=== PATIENT | female | born 1980 | race Caucasian/White ===

== ENCOUNTER 2021-12-30 07:18 | Emergency (ER) | payer OTHER ==
[2021-12-30 07:57] VITALS: BP 128/73; PULSE 98; TEMP 98.2
== END 2021-12-30 09:30 | disposition home or self-care (01) ==
LOC: JER 07:18 → JERFT 07:18
DX: Z20.2 Contact with and (suspected) exposure to infections with a predominantly sexual mode of transmission (principal)
CPT/HCPCS: 36415; 84703; 87491; 87591; 99283-25

== ENCOUNTER 2023-02-24 05:46 | Emergency (ER) | payer OTHER ==
[2023-02-24 05:55] VITALS: BP 138/90; PULSE 107; RESP 18; TEMP 98.2; BMI 24.1
== END 2023-02-24 08:00 | disposition left against medical advice (07) ==
LOC: JER 05:46
DX: R03.0 Elevated blood-pressure reading, without diagnosis of hypertension (principal)
CPT/HCPCS: 99281-25